=== PATIENT | male | born 1980 | race African-American/Black ===

== ENCOUNTER 2016-12-09 16:50 | Emergency (ER) | payer OTHER ==
[2016-12-09 18:13] LABS: BASOPHIL 0.7 % (0-2); EOSINOPHIL 2.6 % (0-5); HGB 15.1 g/dl (13.2-18.0); LYMPHOCYTE 31.2 % (15-48); MCH 30.6 pg (25.0-31.0); MCHC 35.1 g/dL (32.0-36.0); MONOCYTE 8.2 % (0-12); NEUTROPHIL 57.3 % (41-80); PLT 194 K/uL (150-400); RBC 4.94 M/uL (4.70-6.00); RDW 12.5 % (11.5-14.0); WBC 5.8 K/uL (4.0-10.5)
[2016-12-09 18:29] LABS: ALBUMIN 4.7 g/dL (3.5-5.0); BILIRUBIN - TOTAL 0.5 mg/dL (0.1-1.0); CREATININE 1.4 mg/dL (0.7-1.2); GLOBULIN (CALCULATION) 2.6 g/dL (2.2-4.2); TOTAL PROTEIN 7.3 g/dL (6.4-8.3)
== END 2016-12-09 19:13 | disposition home or self-care (01) ==
LOC: FER 16:50
PROVIDERS: Emergency Medicine
DX: R42 Dizziness and giddiness (principal); R51 Headache; R07.9 Chest pain, unspecified; R05 Cough; Z57.5 Occupational exposure to toxic agents in other industries
CPT/HCPCS: 36415; 71010; 80053; 83015; 84484; 85025; 93005; 94640